=== PATIENT | female | born 2005 | race Hispanic/Latino ===

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

== ENCOUNTER 2024-11-27 14:49 | Emergency (ER) | payer OTHER, SELFPAY ==
[2024-11-27] MEDS ORDERED: Lidocaine 2% PF 5 ML VIAL ONE (15:29)
== END 2024-11-27 15:53 | disposition home or self-care (01) ==
LOC: ERS 14:49
DX: L02.211 Cutaneous abscess of abdominal wall (principal); L03.311 Cellulitis of abdominal wall; E11.65 Type 2 diabetes mellitus with hyperglycemia
CPT/HCPCS: 10060; 36416